=== PATIENT | male | born 1980 | race Caucasian/White ===

== ENCOUNTER 2017-10-22 21:49 | Emergency (ER) | payer OTHER ==
[~2017-10-22] VITALS: Ht 157.5 cm; Wt 72.6 kg
[2017-10-22] MEDS ORDERED: SIMVASTATIN10 MG PO (21:54)
[2017-10-23] MEDS ORDERED: MEDROL8 MG PO (04:50)
[2017-10-23] MEDS ORDERED: PEPCID40 MG PO (04:50)
[2017-10-23] MEDS ORDERED: BENADRYL25 MG PO (04:50)
== END 2017-10-23 04:48 | disposition home or self-care (01) ==
LOC: ER 21:49
DX: L27.1 Localized skin eruption due to drugs and medicaments taken internally (principal); T40.4X5A Adverse effect of other synthetic narcotics, initial encounter